=== PATIENT | male | born 1960 | race Caucasian/White ===

== ENCOUNTER 2018-06-17 19:25 | Emergency (ER) | payer MEDICAID ==
--- NOTE | 2018-06-17 19:45 | Emergency Department Record ---
History of Present Illness - General Chief Complaint: Altered Mental Status Stated Complaint: NOT FEELING HIMSELF,FEELS INTOXICATED Time Seen by Provider: 06/17/18 19:38 Source: Patient Mode of Arrival: Ambulatory Limitations: No limitations - History of Present Illness Initial Comments: 57 yo male presents with a vague feeling like he is "stoned" or drunk. He states over the course of the after the vague feelings have come on. He is around people who drink, smoke weed, and do drugs so he was concerned someone could have "slipped him something". No injury. No fever. No dizziness,nausea or vomiting. No diarrhea. No hallucinations. He denies doing and drugs, marijuana, alcohol. No changes in his health recently. He has not had alcohol for 8 months. He denies marijuana. MD Complaint: Other -: Days(s) (1) Severity: Mild Consistency: Constant Context: Other Associated Symptoms: Denies other symptoms - Chance Coma Scale Eye Response: (4) Open spontaneously Motor Response: (6) Obeys commands Verbal Response: (5) Oriented Jackson Total: 15 - Related Data Home Medications Medication Instructions Recorded Confirmed Last Taken Omeprazole 20 mg PO DAILY 06/17/18 06/17/18 Unknown Potassium Chloride [Klor-Con] 20 meq PO 06/17/18 Unknown Allergies Allergy/AdvReac Type Severity Reaction Status Date / Time morphine Allergy swelling Unverified 05/12/17 14:04 Penicillins Allergy unsure of Unverified 05/12/17 14:04 reaction Review of Systems Constitutional: Denies: Chills, Fever, Malaise, Night sweats, Weakness Eyes: Denies: Eye discharge, Eye pain, Photophobia, Vision change ENT: Denies: Congestion, Ear pain, Throat pain Respiratory: Denies: Cough, Dyspnea, Wheezes Cardiovascular: Denies: Chest pain, Palpitations, Syncope Endocrine: Denies: Fatigue, Polydipsia, Polyuria Gastrointestinal: Denies: Abdominal pain, Constipation, Diarrhea, Hematemesis, Hematochezia, Melena, Nausea, Vomiting Genitourinary: Denies: Dysuria, Frequency, Hematuria, Urgency Musculoskeletal: Denies: Arthralgia, Back pain, Joint swelling, Myalgia Skin: Denies: Bruising, Change in color, Rash Neurological: Reports: Confusion. Denies: Abnormal gait, Headache, Numbness, Paresthesias, Seizure, Tingling, Tremors, Vertigo, Weakness Psychiatric: Denies: Anxiety, Auditory hallucinations, Visual hallucinations Hematological/Lymphatic: Denies: Anemia, Easy bleeding, Easy bruising, Swollen glands Physical Exam - General General Appearance: Alert, Oriented x3, Cooperative, No acute distress, Other ( Well appearing, no confusion, well spoken and conversational) Limitations: No limitations - Head Head exam: Atraumatic, Normocephalic, Normal inspection - Eye Eye exam: Normal appearance, PERRL. negative: Conjunctival injection, Periorbital swelling, Scleral icterus - ENT ENT exam: Normal exam, Mucous membranes moist Ear exam: Normal external inspection Nasal Exam: Normal inspection Mouth exam: Normal external inspection Teeth exam: Normal inspection Throat exam: Normal inspection. negative: Tonsillar erythema, Tonsillomegaly, Tonsillar exudate, R peritonsillar mass, L peritonsillar mass - Neck Neck exam: Normal inspection, Full ROM. negative: Lymphadenopathy, Meningismus , Tenderness - Respiratory Respiratory exam: Normal lung sounds bilaterally. negative: Respiratory distress, Rhonchi, Stridor, Wheezes - Cardiovascular Cardiovascular Exam: Regular rate, Normal rhythm, Normal heart sounds - GI/Abdominal GI/Abdominal exam: Soft. negative: Tenderness - Rectal Rectal exam: Deferred - exam: Deferred - Extremities Extremities exam: Normal inspection, Full ROM, Normal capillary refill. negative: Tenderness - Back Back exam: Reports: Normal inspection, Full ROM. Denies: Muscle spasm, Rash noted, Tenderness - Neurological Neurological exam: Alert, CN II-XII intact, Normal gait, Oriented X3, Reflexes normal. negative: Abnormal gait, Altered, Motor sensory deficit - Psychiatric Psychiatric exam: Normal affect, Normal mood. negative: Agitated, Anxious, Depressed, Flat affect, Manic - Skin Skin exam: Dry, Intact, Normal color, Warm Course Vital Signs 06/17/18 19:33 Pulse Rate [ 64 Pulse Ox Probe] Respiratory 24 Rate Blood Pressure 131/84 [Left Arm] Pulse Ox 98 - Reevaluation(s) Reevaluation #1: Well appearing. No signs of impairment, confusion, or otherwise being altered. Vitals reviewed He is concerned he has given drugs. He agrees to blood and urine tests. I informed him I can not test for every possible ingestion but typical common street drugs and alcohol could be tested for. He agrees. 06/17/18 19:44 06/17/18 20:55 The testing is all in the normal range for significant findings He is fully oriented, no alteration He is stable for DC home We discussed reasons to return to the ED Medical Decision Making - Lab Data Result diagrams: 06/17/18 17:47 06/17/18 17:47 Disposition Disposition: Discharge Clinical Impression: Light-headed Disposition: Home, Self-Care Condition: (1) Good Instructions: Altered Mental Status (ED) Additional Instructions: Return if you feel worse, any new concerns or symptoms Call [facility] for close follow up for a new family doctor. Forms: Patient Portal Access Time of Disposition: 20:56 Quality - Quality Measures Quality Measures: N/A - Blood Pressure Screening Does Patient Have Any of the Following: Active Dx of HTN Blood Pressure Classification: Pre-Hypertensive BP Reading Systolic Measurement: 141 Diastolic Measurement: 85 Screening for High Blood Pressure: Patient Exclusion, Hx of HTN [G9744]
[2018-06-17 19:55] LABS: BASO % 0.7 % (0-6); EOS % 5.5 % (0-6); GRAN % 58.1 % (47-80); HEMATOCRIT 41.5 % (42.0-52.0); HEMOGLOBIN 14.9 gm/dl (14.0-18.0); LYMPH % 27.3 % (16-45); MEAN CELL VOLUME 78.7 fl (81-97); MEAN CORPUSCULAR HEMOGLOBIN 28.3 pg (27-33); MEAN CORPUSCULAR HGB CONC 35.9 g/dl (32-36); MEAN PLATELET VOLUME 11.6 fl (7.4-10.4); MONO % 8.4 % (0-9); PLATELET COUNT 129 K/uL (130-400); RED BLOOD COUNT 5.27 M/uL (4.40-5.70); RED CELL DISTRIBUTION WIDTH 14.3 % (11.5-14.5); WHITE BLOOD COUNT W/O DIFF 8.1 K/uL (4.2-12.2)
[2018-06-17 20:05] LABS: BLOOD UREA NITROGEN 8 mg/dL (6-20); CREATININE 1.2 mg/dL (0.7-1.2); EST GLOMERULAR FILTRATION RATE > 60 mL/min
[2018-06-17 20:06] LABS: TOTAL PROTEIN 7.4 g/dL (6.6-8.7)
[2018-06-17 20:08] LABS: GLUCOSE,RANDOM 121 mg/dL (74-109)
[2018-06-17 20:10] LABS: ALT/SGPT 13 U/L (<41); AST/SGOT 17 U/L (10.0-50.0)
[2018-06-17 20:11] LABS: ALB/GLOB RATIO 1.2 (1.1-1.8); ALBUMIN 4.1 g/dL (4.0-5.0); ALKALINE PHOSPHATASE 105 U/L (40-129)
[2018-06-17 20:17] LABS: URINE APPEARANCE CLEAR; URINE BILIRUBIN SMALL (NEGATIVE); URINE BLOOD NEGATIVE (NEGATIVE); URINE COLOR YELLOW; URINE GLUCOSE (UA) NEGATIVE (NEGATIVE); URINE KETONE NEGATIVE (NEGATIVE); URINE LEUKOCYTE ESTERASE NEGATIVE (NEGATIVE); URINE NITRITE NEGATIVE (NEGATIVE); URINE PROTEIN NEGATIVE (NEGATIVE)
[2018-06-17 20:20] LABS: AMPHETAMINE SCREEN URINE NOT DETECTED; BARBITURATE SCREEN URINE NOT DETECTED; BENZODIAZEPINE SCREEN URINE NOT DETECTED; COCAINE SCREEN URINE NOT DETECTED; METHADONE SCREEN URINE NOT DETECTED; METHAMPHETAMINE SCREEN NOT DETECTED; OPIATE SCREEN URINE NOT DETECTED; OXYCODONE SCREEN URINE NOT DETECTED; PHENCYCLIDINE SCREEN URINE NOT DETECTED; PROPOXYPHENE SCREEN URINE NOT DETECTED; THC SCREEN URINE NOT DETECTED; TRICYCLIC ANTIDEPRESSANT SCRN NOT DETECTED
[2018-06-17 20:21] LABS: THYROID STIMULATING HORMONE 1.77 uIU/mL (0.270-4.20)
== END 2018-06-17 21:12 | disposition home or self-care (01) ==
LOC: ER 19:25
DX: R42 Dizziness and giddiness (principal); F17.210 Nicotine dependence, cigarettes, uncomplicated; I10 Essential (primary) hypertension
CPT/HCPCS: 99283 ×2; 85025; 80053; 81003; 84443; 80305; G0480; 80320

== ENCOUNTER 2018-07-14 19:55 | Emergency (ER) | payer MEDICAID ==
--- NOTE | 2018-07-14 20:11 | Emergency Department Record ---
History of Present Illness - General Chief Complaint: Altered Mental Status Stated Complaint: FEELS LIKE HE IS HIGH/BUT ISN'T Time Seen by Provider: 07/14/18 19:57 Source: Patient Mode of Arrival: Ambulatory Limitations: No limitations - History of Present Illness Initial Comments: 57 yo male presents to ED for evaluation of "feeling high". Patient reports that he "hangs out with a lot of people that do drugs", is concerned that he may have ingested something. Patient denies drug or alcohol use, reports only tobacco use. Patient denies denies fevers, chills, or recent illness, and reports similar symptoms 1 month ago with a negative work-up. Patient reports feeling find earlier today as well. MD Complaint: Altered mental status Onset/Timin -: Hour(s) Severity: Moderate Consistency: Constant Context: History of similar presentation, Unknown Associated Symptoms: Denies other symptoms - Chance Coma Scale Eye Response: (4) Open spontaneously Motor Response: (6) Obeys commands Verbal Response: (5) Oriented Chance Total: 15 - Related Data Home Medications Medication Instructions Recorded Confirmed Last Taken Famotidine 40 mg PO DAILY 07/14/18 07/14/18 Unknown Losartan Potassium 25 mg PO DAILY 07/14/18 07/14/18 Unknown Allergies Allergy/AdvReac Type Severity Reaction Status Date / Time morphine Allergy swelling Verified 07/14/18 20:02 Penicillins Allergy unsure of Verified 07/14/18 20:02 reaction Review of Systems Constitutional: Denies: Chills, Fever, Malaise, Night sweats Eyes: Denies: Eye discharge, Eye pain ENT: Denies: Congestion, Ear pain, Epistaxis Respiratory: Denies: Cough, Dyspnea Cardiovascular: Denies: Chest pain, Dyspnea on exertion Endocrine: Denies: Fatigue, Heat or cold intolerance Gastrointestinal: Denies: Abdominal pain, Nausea, Vomiting Genitourinary: Denies: Incontinence, Retention Musculoskeletal: Denies: Arthralgia, Back pain Neurological: Reports: Other ("feels intoxicated"). Denies: Abnormal gait, Confusion, Headache, Seizure Psychiatric: Denies: Anxiety Hematological/Lymphatic: Denies: Anemia, Blood Clots Past Medical History - SOCIAL HISTORY Smoking Status: Current every day smoker Drug Use: None - RESPIRATORY Hx Respiratory Disorders: No - CARDIOVASCULAR Hx Cardio Disorders: Yes Hx Heart Attack: Yes Hx Hypertension: Yes Hx Pacemaker/Defib: Yes - NEURO Hx Neuro Disorders: No - GI Hx GI Disorders: No - Hx Genitourinary Disorders: No - ENDOCRINE Hx Endocrine Disorders: No - MUSCULOSKELETAL Hx Musculoskeletal Disorders: No - PSYCH Hx Psych Problems: Yes Hx Anxiety: Yes - HEMATOLOGY/ONCOLOGY Hx Hematology/Oncology Disorders: No Physical Exam - General General Appearance: Alert, Oriented x3, Cooperative, No acute distress, Other ( steady gait on examination, answers all questions appropriately.) Limitations: No limitations - Head Head exam: Atraumatic, Normocephalic, Normal inspection Head exam detail: negative: Abrasion, Contusion, Shi's sign, General tenderness, Hematoma, Laceration - Eye Eye exam: Normal appearance. negative: Conjunctival injection, Periorbital swelling, Periorbital tenderness, Scleral icterus - ENT Ear exam: negative: Auricular hematoma, Auricular trauma Nasal Exam: negative: Active bleeding, Discharge, Dried blood, Foreign body Mouth exam: negative: Drooling, Laceration, Muffled voice, Tongue elevation - Neck Neck exam: Normal inspection. negative: Meningismus, Tenderness - Respiratory Respiratory exam: Normal lung sounds bilaterally. negative: Rales, Respiratory distress, Rhonchi, Stridor - Cardiovascular Cardiovascular Exam: Regular rate, Normal rhythm, Normal heart sounds - GI/Abdominal GI/Abdominal exam: Soft. negative: Rebound, Rigid, Tenderness - Rectal Rectal exam: Deferred - exam: Deferred - Extremities Extremities exam: Normal inspection. negative: Pedal edema, Tenderness - Back Back exam: Denies: CVA tenderness (R), CVA tenderness (L) - Neurological Neurological exam: Alert, Normal gait, Oriented X3 - Psychiatric Psychiatric exam: Normal affect, Normal mood - Skin Skin exam: Normal color. negative: Abrasion Type of lesion: negative: abrasion Course - Reevaluation(s) Reevaluation #1: 07/14/18 20:46 CT Brain: No acute process Small area of encephalomalacia left parietal region. Laboratory studies were reviewed and are grossly unremarkable for an acute process. Reevaluation #2: 07/14/18 21:31 UDS was reviewed and appears negative. Patient was updated on all results. Patient was instructed to follow-up with his PCP in 3-5 days for further evaluation of his possible old stroke. Patient is alert, oriented, and has the capacity to make rational decisions based on my examination. Patient appears stable for discharge at this time. Medical Decision Making - Lab Data Result diagrams: 07/14/18 20:15 07/14/18 20:15 Disposition Disposition: Discharge Clinical Impression: Light-headed Disposition: Home, Self-Care Condition: (2) Stable Instructions: Lightheadedness (ED) Additional Instructions: Return to ED if your symptoms worsen or if you have any concerns. Follow-up with your family doctor in 3-5 days as directed. Forms: Patient Portal Access Time of Disposition: 21:33 Quality - Quality Measures Quality Measures: N/A - Blood Pressure Screening Does Patient Have Any of the Following: No Blood Pressure Classification: Pre-Hypertensive BP Reading Systolic Measurement: 134 Diastolic Measurement: 79 Screening for High Blood Pressure: < Pre-Hypertensive BP, F/U Documented > [ [id number]] Pre-Hypertensive Follow-up Interventions: Referral to alternative/primary care provider.
[2018-07-14] MEDS ORDERED: 0.9 % SODIUM CHLORIDE 1000ML 1,000 ML IV SCH (20:15)
[2018-07-14 20:28] LABS: EOS % 6.6 % (0-6); GRAN % 53.5 % (47-80); HEMATOCRIT 44.3 % (42.0-52.0); HEMOGLOBIN 15.5 gm/dl (14.0-18.0); LYMPH % 30.8 % (16-45); MEAN CELL VOLUME 80.3 fl (81-97); MEAN CORPUSCULAR HEMOGLOBIN 28.1 pg (27-33); MEAN PLATELET VOLUME 12.2 fl (7.4-10.4); MONO % 8.1 % (0-9); PLATELET COUNT 124 K/uL (130-400); RED BLOOD COUNT 5.52 M/uL (4.40-5.70); WHITE BLOOD COUNT W/O DIFF 7.2 K/uL (4.2-12.2)
[2018-07-14 20:41] LABS: BLOOD UREA NITROGEN 8 mg/dL (6-20); CREATININE 1.2 mg/dL (0.7-1.2); EST GLOMERULAR FILTRATION RATE > 60 mL/min
[2018-07-14 20:42] LABS: TOTAL PROTEIN 7.7 g/dL (6.6-8.7)
[2018-07-14 20:44] LABS: GLUCOSE,RANDOM 96 mg/dL (74-109)
[2018-07-14 20:46] LABS: ALB/GLOB RATIO 1.3 (1.1-1.8); ALBUMIN 4.3 g/dL (4.0-5.0); ALT/SGPT 13 U/L (<41); AST/SGOT 16 U/L (10.0-50.0)
[2018-07-14 20:47] LABS: ALKALINE PHOSPHATASE 107 U/L (40-129)
[2018-07-14 21:31] LABS: AMPHETAMINE SCREEN URINE NOT DETECTED; BARBITURATE SCREEN URINE NOT DETECTED; BENZODIAZEPINE SCREEN URINE NOT DETECTED; COCAINE SCREEN URINE NOT DETECTED; METHADONE SCREEN URINE NOT DETECTED; METHAMPHETAMINE SCREEN NOT DETECTED; OPIATE SCREEN URINE NOT DETECTED; OXYCODONE SCREEN URINE NOT DETECTED; PHENCYCLIDINE SCREEN URINE NOT DETECTED; PROPOXYPHENE SCREEN URINE NOT DETECTED; THC SCREEN URINE NOT DETECTED; TRICYCLIC ANTIDEPRESSANT SCRN NOT DETECTED
--- NOTE | 2018-07-16 14:40 | CT SCAN REPORT ---
EXAM: CT SCAN OF THE BRAIN WITHOUT CONTRAST HISTORY: CONFUSION. TECHNIQUE: Standard CT imaging of the brain was performed in the axial plane without contrast. Additional coronal and sagittal reformatted images were also performed. Comparison: None. Encounter: Not applicable. FINDINGS: The ventricles and subarachnoid spaces are normal. There is a small area of encephalomalacia involving the superior left parietal lobe consistent with an area of previous infarct or injury. The brain parenchyma is otherwise unremarkable. There is no acute intracranial hemorrhage or visible infarct. There is no mass, mass effect, or abnormal extraaxial fluid. The skull is intact. The orbits and mastoids are normal. There is chronic mucosal thickening within the paranasal sinuses. There are old nasal bone fractures. IMPRESSION: 1. NO ACUTE INTRACRANIAL ABNORMALITY. 2. SMALL AREA OF ENCEPHALOMALACIA INVOLVING THE SUPERIOR LEFT PARIETAL LOBE CONSISTENT WITH PREVIOUS INJURY OR INFARCT. JOB NUMBER: [id number] MTDD
== END 2018-07-14 21:44 | disposition home or self-care (01) ==
LOC: ER 19:55
DX: R42 Dizziness and giddiness (principal); R41.82 Altered mental status, unspecified; I10 Essential (primary) hypertension; I25.2 Old myocardial infarction; F17.210 Nicotine dependence, cigarettes, uncomplicated
CPT/HCPCS: 99284 ×2; 96360; 85025; 80053; 80305; 70450; G0480; 80320; J7030